=== PATIENT | female | born 1970 | race Caucasian/White ===

== ENCOUNTER 2023-08-07 23:09 | Emergency (ER) | payer SELFPAY ==
[~2023-08-07] VITALS: Ht 165.1 cm; Wt 69.4 kg
[2023-08-07 23:12] VITALS: BP 131/70; PULSE 117; RESP 14; TEMP 99.9; O2SAT 96
[2023-08-07 23:48] LABS: APPEARANCE,URINE CLEAR (CLEAR); BILIRUBIN,URINE NEGATIVE (NEGATIVE); BLOOD, URINE 2+ (NEGATIVE); COLOR,URINE YELLOW (YELLOW); LEUKOCYTE ESTERASE ,URINE TRACE (NEGATIVE); NITRITE, URINE NEGATIVE (NEGATIVE); PROTEIN,URINE NEGATIVE (NEGATIVE); UGLUCOSE NEGATIVE (NEGATIVE); UROBILINOGEN,URINE 0.2 EU/dL (0.2 - 1)
[2023-08-07] MEDS: NACL 0.9% 1,000 ML IV ONE (23:58)
[2023-08-08 00:12] LABS: RBC,URINE 0-5 /HPF (0-5)
[2023-08-08 00:13] LABS: BACTERIA,URINE 10-30 (MOD) /HPF (None Seen); MUCUS,URINE 1+ /LPF (None Seen); SQUAMOUS EPITHELIAL CELL,UR 0-3 (FEW) /LPF (0-3 (FEW)); WBC,URINE 0-5 /HPF (0-5)
[2023-08-08] MEDS ORDERED: KETOROLAC 30 MG/ML VIAL IVP ONE (00:30)
[2023-08-08] MEDS ORDERED: FAMOTIDINE 20 MG/2 ML VIAL IVP ONE (00:30)
[2023-08-08] MEDS ORDERED: ONDANSETRON 4 MG/2 ML VIAL IVP ONE (00:30)
[2023-08-08 00:44] VITALS: BP 128/70; PULSE 100; RESP 14; TEMP 98.6; O2SAT 98
== END 2023-08-08 00:44 | disposition left against medical advice (07) ==
LOC: MED 23:09
DX: N39.0 Urinary tract infection, site not specified (principal); R11.10 Vomiting, unspecified; R19.7 Diarrhea, unspecified; R51.9 Headache, unspecified; Z90.49 Acquired absence of other specified parts of digestive tract
CPT/HCPCS: 81001; 87086; 96360; 99283; J7030